=== PATIENT | male | born 1995 | race Caucasian/White ===

== ENCOUNTER 2020-04-04 14:29 | Emergency (ER) | payer OTHER ==
--- NOTE | 2020-04-04 14:44 | ED Physician Documentation ---
PD HPI ABD PAIN - Stated complaint Stated Complaint: ABD PX - Chief complaint Chief Complaint: Abd Pain - History obtained from History obtained from: Patient - History of Present Illness Timing - onset: How many weeks ago (2) Timing - duration: Weeks (2) Timing - details: Gradual onset (onset RLQ abd pain 2 weeks ago, significant at first for couple days, then decreased but has been ongoing pain and cramps still the 2 weeks. Seen at Clinic and Rx with ibuprofen and stool softener initially. Then seen again today and had CT abd and labs. CT showing local perforated appendicitis.), Still present Quality: Cramping, Aching Improved by: Laying still Worsened by: Eating, Moving, Position, Palpation Associated symptoms: Nausea, Diarrhea. No: Fever, Vomiting Recently seen: Clinic ([facility] with labs and CT today. 1-2 prior visits the past couple weeks.) Review of Systems Constitutional: denies: Fever, Chills Nose: denies: Rhinorrhea / runny nose, Congestion Throat: denies: Sore throat Respiratory: denies: Cough GI: reports: Abdominal Pain Skin: denies: Rash PD PAST MEDICAL HISTORY - Past Medical History Past Medical History: No - Past Surgical History Past Surgical History: No - Present Medications Home Medications: Ambulatory Orders Medication Instructions Recorded Confirmed Amox/Clav 875/125 [Augmentin] 1 each PO Q12H 10 Days #20 tablet 04/04/20 - Allergies Allergies/Adverse Reactions: Allergies Allergy/AdvReac Type Severity Reaction Status Date / Time No Known Drug Allergies Allergy Verified 04/04/20 14:35 PD ED PE NORMAL - Vitals Vital signs reviewed: Yes - General General: Alert and oriented X 3, Well developed/nourished - Cardiac Cardiac: RRR, No murmur - Respiratory Respiratory: Clear bilaterally - Abdomen Abdomen: Normal bowel sounds, Soft, Other (tender RLQ with some local guarding. No general tenderness and no percussion tenderness. ) - Male Male : Deferred - Rectal Rectal: Deferred - Back Back: No CVA TTP Results - Vitals Vitals: Vital Signs - 24 hr 04/04/20 04/04/20 04/04/20 14:35 14:38 16:38 Temperature 36.8 C Heart Rate 92 88 90 Respiratory 16 16 18 Rate Blood Pressure 179/100 H 174/80 H 136/68 H O2 Saturation 100 99 98 04/04/20 18:39 Temperature 36.3 C L Heart Rate 84 Respiratory 14 Rate Blood Pressure 132/78 H O2 Saturation 100 Oxygen O2 Source Room air - Labs Labs: Laboratory Tests 04/04/20 16:34 Urine Color YELLOW Urine Clarity CLEAR Urine pH 7.5 Ur Specific [place] 1.010 Urine Protein NEGATIVE Urine Glucose (UA) NEGATIVE Urine Ketones NEGATIVE Urine Occult Blood NEGATIVE Urine Nitrite NEGATIVE Urine Bilirubin NEGATIVE Urine Urobilinogen 0.2 (NORMAL) Ur Leukocyte Esterase NEGATIVE Ur Microscopic Review NOT INDICATED Urine Culture Comments NOT INDICATED PD MEDICAL DECISION MAKING - ED course Complexity details: considered differential (came from [facility] with labs and CT showing perforated appendicitis with local phlegmon. Appears well. To get surgery consult. ), d/w patient, d/w merchandising consultant (Dr. Eric, on for surgery, will come see patient once done with clinic patients. ) ED course: Dr Eric saw patient and discussed treatment options and plan. Per Dr Eric, being treated nonsurgically. Departure - Departure Disposition: 01 Home, Self Care Clinical Impression: Appendicitis with perforation Condition: Stable Record reviewed to determine appropriate education?: Yes Follow-Up: Kevin Eric MD [Provider Admit Priv/Credential] - Prescriptions: Amox/Clav 875/125 [Augmentin] 1 each PO Q12H 10 Days #20 tablet Comments: Use the antibiotics prescribed by the surgeon. You can add some ibuprofen 3 times a day for pain and inflammation. Stay well-hydrated. Add Tylenol if needed. Follow-up with the surgeon as scheduled by him. Forms: Activity restrictions Discharge Date/Time: 04/04/20 18:40
[2020-04-04] MEDS ORDERED: AMPICILLIN/SULBACTAM 3 GM in SODIUM CHLORIDE 0.9% MINIBAG 100 ML IV STA (15:24)
[2020-04-04 16:44] LABS: BILIRUBIN,URINE NEGATIVE (NEGATIVE); GLUCOSE, URINE (UA) NEGATIVE (NEGATIVE); KETONES,URINE (UA) NEGATIVE (NEGATIVE); LEUKOCYTE ESTERASE, URINE NEGATIVE (NEGATIVE); NITRITE,URINE NEGATIVE (NEGATIVE); OCCULT BLOOD,URINE NEGATIVE (NEGATIVE); PH,URINE 7.5 PH (5.0-7.5); PROTEIN,URINE NEGATIVE (NEGATIVE); UROBILINOGEN,URINE 0.2 (NORMAL) E.U./dL (NORMAL)
[2020-04-04 16:46] LABS: CLARITY,URINE CLEAR (CLEAR)
[2020-04-04] MEDS ORDERED: KETOROLAC 30 MG/ML VIAL IVP STA (18:13)
--- NOTE | 2020-04-04 18:13 | HISTORY & PHYSICAL EXAMINATION ---
Chief Complaint - Chief Complaint Chief Complaint: abdominal pain and poor appetite x 2 weeks Abdominal Pain HPI - History Obtained From History obtained from: Patient, Family Exam limitations: No limitations - History of Present Illness Severity at the worst: Moderate Pain Quality: Dull, Cramping Timing: Gradual onset Duration: Other (2 weeks) Worsened by: Eating Associated symptoms: Other (initially thought to be constipation) PMH/PSH - Past Medical History Cardiovascular: positive: None Respiratory: positive: None Neuro: positive: None Endocrine/Autoimmune: positive: None GI: positive: None : positive: None HEENT: positive: None Psych: positive: None Musculoskeletal: positive: None Derm: positive: None MRSA Hx?: No Social & Family Hx - Social History Does the pt smoke?: No Smoking Status: Never smoker Does the pt drink ETOH?: No Does the pt have substance abuse?: No - POLST Patient has POLST: No Meds/Allgy - Home Medications Home Medications: Ambulatory Orders Medication Instructions Recorded Confirmed Amox/Clav 875/125 [Augmentin] 1 each PO Q12H 10 Days #20 tablet 04/04/20 - Allergies Allergies/Adverse Reactions: Allergies Allergy/AdvReac Type Severity Reaction Status Date / Time No Known Drug Allergies Allergy Verified 04/04/20 14:35 Review of Systems - Other Findings Other Findings: 10 pt ros as above and below otherwise unremarkable. initially had low grade fever under 100 Exam - Vital Signs Vital Signs: Vital Signs x48h Temp Pulse Resp BP Pulse Ox 04/04/20 16:38 90 18 136/68 H 98 04/04/20 14:38 88 16 174/80 H 99 04/04/20 14:35 36.8 C 92 16 179/100 H 100 - Physical Exam General Appearance: positive: No acute distress, Alert Eyes Bilateral: positive: Normal inspection ENT: positive: No signs of dehydration Neck: positive: No JVD Respiratory: positive: No respiratory distress Abdomen: positive: No distention, Other (no guarding, peritoneal signs mild tenderness right lower quadrant to deep palpation) Neurologic/Psychiatric: positive: Oriented x3, Mood/affect nml Results - Lab Results Other Lab Results: Lab Results x24hrs 04/04/20 Range/Units 16:34 Urine Color YELLOW Urine Clarity CLEAR (CLEAR) Urine pH 7.5 (5.0-7.5) PH Ur Specific [place] 1.010 (1.002-1.030) Urine Protein NEGATIVE (NEGATIVE) mg/dL Urine Glucose (UA) NEGATIVE (NEGATIVE) mg/dL Urine Ketones NEGATIVE (NEGATIVE) mg/dL Urine Occult Blood NEGATIVE (NEGATIVE) Urine Nitrite NEGATIVE (NEGATIVE) Urine Bilirubin NEGATIVE (NEGATIVE) Urine Urobilinogen 0.2 (NORMAL) (NORMAL) E.U./dL Ur Leukocyte Esterase NEGATIVE (NEGATIVE) Ur Microscopic Review NOT INDICATED Urine Culture Comments NOT INDICATED - Diagnostic Imaging Results Diagnostic Imaging Results: positive: Read independently (appedicitis retrocecal with small contained abscess adjacent to the terminal ileum) Impression/Plan - Problem List Problem List: Ruptured appendix 2 weeks ago. He is improved from 2 weeks ago. Bowel function better. tolerating diet ok. Benign abdomen Plan antibiotics and follow up [facility] next week. [phone] rx given 10 day course augmentin. If not improving he will need a repeat ct scan and possible Interventional radiology drain.
[2020-04-04 18:40] VITALS: BP 132/78
== END 2020-04-04 18:40 | disposition home or self-care (01) ==
LOC: ED 14:29
DX: K35.32 Acute appendicitis with perforation, localized peritonitis, and gangrene, without abscess (principal)
CPT/HCPCS: 36415; 80053; 81001; 81003; 83690; 85025; 87086; 96365; 96375; 99284